=== PATIENT | male | born 1990 | race American Indian/Alaskan Native ===

== ENCOUNTER 2019-01-04 20:08 | Emergency (ER) | payer OTHER ==
[2019-01-04] MEDS ORDERED: PERCOCET 5/325 PO ONE (20:22)
[2019-01-04] MEDS ORDERED: PERCOCET 5/325 ONE (20:25)
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
[2019-01-04 20:35] VITALS: BP 125/86
[2019-01-04] MEDS ORDERED: BOOSTRIX IM ONE (21:45)
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
--- NOTE | 2019-01-04 21:56 | XRay Report ---
LEFT FOREARM 2 VIEWS INDICATION / CLINICAL INFORMATION: laceration to forearm. COMPARISON: None available. FINDINGS: Negative. Signer Name: Aayush Byrnes MD Signed: 01/04/2019 9:52 PM Workstation Name: [id number]
[2019-01-04] MEDS ORDERED: IBUPROFEN PO ONE (22:05)
[2019-01-04] MEDS ORDERED: ULTRAM PO ONE (22:05)
[2019-01-04] MEDS ORDERED: ULTRAM ONE (22:08)
[2019-01-04] MEDS ORDERED: IBUPROFEN ONE (22:08)
[2019-01-04] MEDS ORDERED: NACL 0.9% IR ONE (22:35)
[2019-01-04] MEDS ORDERED: TRIPLE ANTIBIOTIC TP ONE ×2 (23:04)
== END 2019-01-04 23:10 | disposition home or self-care (01) ==
LOC: ED 20:08
DX: S50.812A Abrasion of left forearm, initial encounter (principal); S61.402A Unspecified open wound of left hand, initial encounter; Z88.8 Allergy status to other drugs, medicaments and biological substances; W25.XXXA Contact with sharp glass, initial encounter; Y93.89 Activity, other specified; Y92.89 Other specified places as the place of occurrence of the external cause; Y99.8 Other external cause status
CPT/HCPCS: 90471; 90715; A6250